=== PATIENT | female | born 1970 | race African-American/Black ===

== ENCOUNTER 2019-08-02 20:31 | Inpatient (IN) | payer MEDICAID ==
[~2019-08-02] VITALS: Ht 160 cm; Wt 49.0 kg
[2019-08-03] MEDS ORDERED: ONDANSETRON HCL 4MG/2ML INJ IV STA (00:26)
[2019-08-03] MEDS ORDERED: SODIUM CHLORIDE 0.9% 1,000 ML IV ONE (00:26)
[2019-08-03] MEDS ORDERED: MORPHINE SULFATE 4 MG/ML CPJ (NOT FOR IM USE) IV STA (00:26)
[2019-08-03] MEDS ORDERED: LORAZEPAM 2MG/ML CPJ IV ONE (00:30)
[2019-08-03 00:59] LABS: HEMATOCRIT. 34.3 % (36.0-48.0); MEAN CORPUSCULAR HEMOGLOBIN 39.3 pg (28.0-32.0); MEAN CORPUSCULAR VOLUME 112.4 fL (81.0-99.0); MEAN PLATELET VOLUME 8.7 fl (7.4-10.4); PLATELET 193 x1000/uL (130-400); RED BLOOD CELL COUNT 3.05 mill/uL (4.2-5.4)
[2019-08-03 01:05] LABS: CLARITY URINE CLEAR (CLEAR); COLOR URINE DARK YELLOW (YELLOW); KETONES URINE NEGATIVE (NEGATIVE); LEUKOCYTE ESTERASE URINE TRACE (NEGATIVE); NITRITE URINE NEGATIVE (NEGATIVE); OCCULT BLOOD URINE NEGATIVE (NEGATIVE); PH URINE 5.5 (4.5-8.0); PROTEIN URINE NEGATIVE (NEGATIVE)
[2019-08-03 01:08] LABS: CHLORIDE 102 mEq/L (98-107)
[2019-08-03 01:12] LABS: D-DIMER 0.5 mg/L FEU (<0.50); INR 1.6; PARTIAL THROMBOPLASTIN TIME 32.9 sec (23.4-31.0); PROTHROMBIN TIME 15.7 sec (9.6-11.0)
[2019-08-03 01:42] LABS: HCG SCREEN NEGATIVE
[2019-08-03 01:53] LABS: PLATELET ESTIMATE NORMAL
[2019-08-03 03:06] LABS: CREATINE KINASE 78 IU/L (26-192); CREATINE KINASE MB FRACTION < 1.0 ng/mL (0.5-3.6)
[2019-08-03 03:30] VITALS: BP 111/73
[2019-08-03 04:00] VITALS: BP 111/73
[2019-08-03] MEDS ORDERED: APIX5TAB PO (04:30)
[2019-08-03] MEDS ORDERED: MORPHINE SULFATE 2 MG/ML CPJ (NOT FOR IM USE) IV PRN (05:00)
[2019-08-03] MEDS ORDERED: CLONIDINE 0.2MG TABLET PO PRN (05:00)
[2019-08-03] MEDS ORDERED: ACETAMINOPHEN 325MG TABLET PO PRN (05:00)
[2019-08-03] MEDS ORDERED: SODIUM CHLORIDE 0.45% 1,000 ML IV SCH (06:00)
[2019-08-03 08:00] VITALS: BP 114/75
[2019-08-03] MEDS: APIXABAN 5 MG TABLET PO SCH ×2 (08:19→17:31)
[2019-08-03] MEDS: OMEPRAZOLE 20MG CAPSULE EXTENDED RELEASE PO SCH (08:19)
[2019-08-03] MEDS: HYDROCODONE/ACETAMINOPHEN 5/325MG TABLET PO PRN ×2 (08:29→14:37)
[2019-08-03 12:00] VITALS: BP 119/79
[2019-08-03 16:00] VITALS: BP 134/82
[2019-08-03 20:00] VITALS: BP 155/88
[2019-08-04] VITALS: BP 153/97
[2019-08-04 04:00] VITALS: BP 98/63
[2019-08-04] MEDS: OMEPRAZOLE 20MG CAPSULE EXTENDED RELEASE PO SCH (06:16)
[2019-08-04 08:00] VITALS: BP 117/63
[2019-08-04] MEDS: APIXABAN 5 MG TABLET PO SCH (08:20)
[2019-08-04 13:08] VITALS: BP 123/78
== END 2019-08-04 15:10 | disposition home or self-care (01) | DRG 351 ==
LOC: ER 20:31 → 8WST 08-03 01:49 → ENRESERV 08-03 02:13
PROVIDERS: ADMIT Internal Medicine; ATTEND Internal Medicine
DX: M79.662 Pain in left lower leg (principal); R17 Unspecified jaundice; M79.661 Pain in right lower leg; R19.00 Intra-abdominal and pelvic swelling, mass and lump, unspecified site; E86.0 Dehydration; F17.200 Nicotine dependence, unspecified, uncomplicated; I10 Essential (primary) hypertension; Z82.61 Family history of arthritis; Z86.718 Personal history of other venous thrombosis and embolism; Z79.01 Long term (current) use of anticoagulants; Z71.6 Tobacco abuse counseling
CPT/HCPCS: 36415; 74176; 76700; 81003; 82550; 82553; 83880; 84484; 84703; 85379; 93005; 93970; 99285; J2060; J2270; J2405; J7030

== ENCOUNTER 2020-03-02 16:03 | Emergency (ER) | payer MEDICAID ==
[~2020-03-02] VITALS: Ht 165.1 cm; Wt 61.0 kg
[~2020-03-02 16:03] MED LIST: APIX5TAB PO
[2020-03-02 16:06] VITALS: BP 174/100
[2020-03-02] MEDS ORDERED: KETOROLAC 60MG/2ML VIAL IM STA (16:44)
[2020-03-02] MEDS ORDERED: APIXABAN 5 MG TABLET PO STA (17:09)
[2020-03-02] MEDS ORDERED: APIXABAN 5 MG TABLET PO ONE (17:15)
[2020-03-02 18:25] LABS: CHLORIDE 104 mEq/L (98-107)
[2020-03-02 18:27] LABS: INR 1.2; PROTHROMBIN TIME 12.5 sec (9.6-11.0)
[2020-03-02 18:33] LABS: BASOPHILS % 1.6 % (0.0-2.0); EOSINOPHILS % 0.5 % (0.0-5.0); HEMATOCRIT. 31.7 % (36.0-48.0); HEMOGLOBIN. 10.7 g/dL (12.0-16.0); LYMPHOCYTES % 24.9 % (20.0-50.0); MEAN CORPUSCULAR HEMOGLOBIN 37.2 pg (28.0-32.0); MEAN CORPUSCULAR VOLUME 109.9 fL (81.0-99.0); MEAN PLATELET VOLUME 7.5 fl (7.4-10.4); MONOCYTES % 7.7 % (2.0-8.0); NEUTROPHILS % 65.3 % (40.0-76.0); PLATELET 419 x1000/uL (130-400); RED BLOOD CELL COUNT 2.88 mill/uL (4.2-5.4); RED CELL DISTRIBUTION WIDTH 23.1 % (11.6-14.6)
[2020-03-02 19:21] LABS: PLATELET ESTIMATE SLIGHTLY INCREASED
== END 2020-03-02 18:58 | disposition home or self-care (01) ==
LOC: ER 16:03
DX: M25.572 Pain in left ankle and joints of left foot (principal); I10 Essential (primary) hypertension; Z86.718 Personal history of other venous thrombosis and embolism; Z79.01 Long term (current) use of anticoagulants
CPT/HCPCS: 36415; 80053; 81025; 85025; 85610; 93971; 96372; 99284; J1885

== ENCOUNTER 2020-03-22 09:01 | Emergency (ER) | payer MEDICAID ==
[~2020-03-22] VITALS: Ht 177.8 cm; Wt 61.0 kg
[2020-03-22] MEDS ORDERED: SODIUM CHLORIDE 0.9% 250 ML IV ONE (09:29)
[2020-03-22 09:47] LABS: BASOPHILS % 3.5 % (0.0-2.0); EOSINOPHILS % 1.9 % (0.0-5.0); HEMATOCRIT. 33.1 % (36.0-48.0); HEMOGLOBIN. 11.2 g/dL (12.0-16.0); LYMPHOCYTES % 36.8 % (20.0-50.0); MEAN CORPUSCULAR HEMOGLOBIN 36.2 pg (28.0-32.0); MEAN PLATELET VOLUME 7.5 fl (7.4-10.4); MONOCYTES % 8.7 % (2.0-8.0); NEUTROPHILS % 49.1 % (40.0-76.0); PLATELET 343 x1000/uL (130-400); RED BLOOD CELL COUNT 3.09 mill/uL (4.2-5.4); RED CELL DISTRIBUTION WIDTH 23.1 % (11.6-14.6)
[2020-03-22 09:47] LABS: CLARITY URINE CLOUDY (CLEAR); COLOR URINE ORANGE (YELLOW); KETONES URINE NEGATIVE (NEGATIVE); LEUKOCYTE ESTERASE URINE 1+ (NEGATIVE); NITRITE URINE NEGATIVE (NEGATIVE); OCCULT BLOOD URINE 3+ (NEGATIVE); PH URINE 5.5 (4.5-8.0); PROTEIN URINE 1+ (NEGATIVE); SPECIFIC GRAVITY URINE 1.019 (1.005-1.030)
[2020-03-22 09:57] LABS: CHLORIDE 105 mEq/L (98-107)
[2020-03-22 10:00] LABS: ETHANOL BLOOD 168 mg/dL
[2020-03-22 10:02] LABS: INR 1.2; PARTIAL THROMBOPLASTIN TIME 26.7 sec (23.4-31.0); PROTHROMBIN TIME 13.2 sec (9.6-11.0)
[2020-03-22 10:34] LABS: PLATELET ESTIMATE NORMAL
[2020-03-22] MEDS ORDERED: POTASSIUM CHLORIDE 20MEQ TABLET SR PO ONE (10:45)
[2020-03-22 10:47] LABS: *AMPHETAMINES SCREEN URINE NEGATIVE (NEGATIVE); *BARBITURATES SCREEN URINE NEGATIVE (NEGATIVE); *BENZODIAZEPINES SCREEN URINE NEGATIVE (NEGATIVE)
[2020-03-22 10:48] LABS: METHADONE URINE SCREEN NEGATIVE (NEGATIVE); OPIATES URINE SCREEN NEGATIVE (NEGATIVE); PHENCYCLIDINE URINE SCREEN NEGATIVE (NEGATIVE)
[2020-03-22 10:53] LABS: *COCAINE SCREEN URINE PRESUMTIVE POSITIVE (NEGATIVE); CANNABINOID URINE SCREEN PRESUMTIVE POSITIVE (NEGATIVE)
[2020-03-22 11:47] VITALS: BP 124/72
== END 2020-03-22 12:09 | disposition home or self-care (01) ==
LOC: ER 09:01
DX: N39.0 Urinary tract infection, site not specified (principal); R10.2 Pelvic and perineal pain; I10 Essential (primary) hypertension; I82.409 Acute embolism and thrombosis of unspecified deep veins of unspecified lower extremity; F10.129 Alcohol abuse with intoxication, unspecified; F14.129 Cocaine abuse with intoxication, unspecified; Y90.9 Presence of alcohol in blood, level not specified
CPT/HCPCS: 36415; 74176; 76830; 76856; 80053; 80305; 80320; 81003; 81025; 83690; 84484; 85025; 85610; 85730; 93005; 93970; 99285; J7050; G0480

== ENCOUNTER → 2020-12-20 | Emergency (ER) | payer MEDICAID ==
[~2020-12-20] VITALS: Ht 167.6 cm; Wt 65.0 kg
[~2020-12-20] MED LIST changes: +APIX5TAB MT; +METH-375 PO; +METHOCARBAMOL 750MG TABLET PO SCH; +OXYCODONE HCL/ACETAMINOPHEN 5/325MG TABLET PO ONE
[2020-12-20 23:00] VITALS: BP 148/80
== END ==
LOC: ER 18:10
DX: S70.12XA Contusion of left thigh, initial encounter (principal); S70.11XA Contusion of right thigh, initial encounter; I10 Essential (primary) hypertension; Z86.718 Personal history of other venous thrombosis and embolism; Y04.0XXA Assault by unarmed brawl or fight, initial encounter; Y93.89 Activity, other specified; Y92.89 Other specified places as the place of occurrence of the external cause; Y99.8 Other external cause status
CPT/HCPCS: 99283